=== PATIENT | female | born 1970 ===

== ENCOUNTER 2016-11-09 13:09 | Day surgery (SDC) | payer OTHER ==
[~2016-11-09] VITALS: Ht 157.5 cm; Wt 66.7 kg
[2016-11-09] MEDS ORDERED: ONDANSETRON HCL 4 MG/2 ML VIAL ONE (14:00)
[2016-11-09] MEDS ORDERED: fentaNYL CITRATE/PF 100 MCG/2 ML AMP ONE (14:00)
[2016-11-09] MEDS ORDERED: SILVER NITRATE APPLICATOR 1 STICK STICK..EA. TP ONE (14:00)
[2016-11-09] MEDS ORDERED: KETOROLAC TROMETHAMINE 30 MG VIAL ONE (14:00)
[2016-11-09] MEDS ORDERED: MIDAZOLAM HCL 5 MG/5 ML VIAL ONE (14:00)
[2016-11-09] MEDS ORDERED: SEVOFLURANE 15 MIN GAS INH ONE (14:00)
[2016-11-09] MEDS ORDERED: OXYTOCIN 10 UNIT/ML VIAL ONE (14:00)
[2016-11-09] MEDS ORDERED: PROPOFOL 200MG/ 20ML VIAL (DIPRIVAN) IV ONE (14:00)
[2016-11-09] MEDS ORDERED: WATER FOR IRRIGATION,STERILE 1,000 ML IRRIG.SOLN IR ONE (14:00)
[2016-11-09 14:31] LABS: LYMPHOCYTES # (AUTO) 2.1 K/uL (1.0-5.5); MONOCYTES # (AUTO) 0.4 K/uL (0.0-1.0)
[2016-11-09 14:41] LABS: EOSINOPHILS # (AUTO) 0.2 K/uL (0.0-0.4); EOSINOPHILS % (AUTO) 2.6 % (0.0-4.0); HEMATOCRIT 35.6 % (36-48); HEMOGLOBIN 12.3 g/dL (12.0-16.0); LYMPHOCYTES % (AUTO) 33.8 % (20.5-51.5); MEAN CORPUSCULAR HEMOGLOBIN 28 pg (27-31); MEAN CORPUSCULAR HGB CONC 35 % (32-36); MEAN CORPUSCULAR VOLUME 79 fL (79.0-98.0); MONOCYTES % (AUTO) 6.3 % (1.7-9.3); PLATELET COUNT (AUTO) 299 K/uL (130-430); RED BLOOD CELL COUNT(AUTO) 4.48 MIL/uL (4.2-6.2); RED CELL DISTRIBUTION WIDTH 14.4 % (9.0-15.0); WHITE BLOOD COUNT (AUTO) 6.1 K/uL (4.8-10.8)
[2016-11-09 14:45] LABS: BASOPHILS % (AUTO) 0.3 % (0.0-2.0)
[2016-11-09 14:46] LABS: NEUTROPHILS # (AUTO) 3.4 K/uL (1.8-7.7)
[2016-11-09] MEDS ORDERED: LR 1,000 ML IV SCH (14:51)
[2016-11-09 15:00] LABS: BILIRUBIN,URINE NEGATIVE (NEGATIVE); BLOOD, URINE 2+ (NEGATIVE); CLARITY/URINE CLEAR (CLEAR); COLOR,URINE YELLOW (YELLOW); GLUCOSE,URINE NEGATIVE (NEGATIVE); KETONES,URINE NEGATIVE (NEGATIVE); LEUKOCYTE ESTERASE ,URINE NEGATIVE (NEGATIVE); NITRITE, URINE NEGATIVE (NEGATIVE); PH,URINE 6.5 (5.0-8.0); PROTEIN URINE NEGATIVE (NEGATIVE); UROBILINOGEN,URINE 0.2 (0.2-1.0)
[2016-11-09] MEDS ORDERED: KETOROLAC TROMETHAMINE 30 MG VIAL IVP PRN (15:00)
[2016-11-09] MEDS ORDERED: ONDANSETRON HCL 4 MG/2 ML VIAL IVP PRN ×2 (15:00→15:15)
[2016-11-09] MEDS ORDERED: HYDROmorphone 1 MG INJ. 1 MG/ML AMPUL IVP PRN (15:00)
[2016-11-09] MEDS ORDERED: MEPERIDINE HCL/PF 25 MG/ML DISP.SYRIN IVP PRN ×2 (15:00)
[2016-11-09] MEDS ORDERED: HYDROmorphone 2 MG/ML VIAL IVP PRN ×2 (15:00)
[2016-11-09] MEDS ORDERED: OXYCODONE/ACETAMINOPHEN 5-325 TABLET PO PRN (15:15)
[2016-11-09] MEDS ORDERED: PROMETHAZINE HCL 25 MG/ML AMP IM PRN (15:15)
[2016-11-09 16:26] LABS: BACTERIA,URINE FEW /HPF (None Seen); WBC,URINE 0-3 /HPF (0-3)
[2016-11-09 16:27] LABS: MUCUS,URINE None Seen /LPF (None Seen)
== END 2016-11-09 17:25 | disposition home or self-care (01) ==
LOC: SDS 13:09 → MERGE 13:09 → SDS 17:25
PROVIDERS: ATTEND Obstetrics & Gynecology
DX: O02.1 Missed abortion (principal); N84.1 Polyp of cervix uteri; E78.00 Pure hypercholesterolemia, unspecified
CPT/HCPCS: 36415; 59820; 81000; 85025; 86886; 86900; 86901; 88305; J1885; J2250; J2405; J2590; J2704; J3010